=== PATIENT | female | born 1960 | race Caucasian/White ===

== ENCOUNTER 2017-08-20 17:11 | Emergency (ER) | payer MEDICARE, OTHER ==
[~2017-08-20] VITALS: Ht 160 cm; Wt 90.0 kg
[~2017-08-20 17:11] MED LIST: ALIS1TAB6 PO; GLIM4TAB55 PO; GLIP5TAB13 PO; INSU100I15 SC; INSU100V27 SQ; METO-335 PO; RAMI5CAP46 PO; SYMLIN SQ
[2017-08-20 17:16] VITALS: Ht 160 cm; Wt 90.0 kg
[2017-08-20] MEDS ORDERED: HYDROmorphONE 1 MG/ML SYG IM STA (18:05)
[2017-08-20] MEDS ORDERED: ONDANSETRON (ODT) 4 MG TAB ODT STA (18:05)
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
[2017-08-20] MEDS ORDERED: IBUP-1542 PO (19:23)
[2017-08-20] MEDS ORDERED: HYDR-902 PO (19:23)
[2017-08-20 20:47] VITALS: BP 135/63; PULSE 96; RESP 22; TEMP 98.8
== END 2017-08-20 20:50 | disposition home or self-care (01) ==
LOC: FTE 17:11
DX: S22.31XA Fracture of one rib, right side, initial encounter for closed fracture (principal); I10 Essential (primary) hypertension; E11.9 Type 2 diabetes mellitus without complications; V49.50XA Passenger injured in collision with unspecified motor vehicles in traffic accident, initial encounter; Z79.4 Long term (current) use of insulin; Z79.84 Long term (current) use of oral hypoglycemic drugs
CPT/HCPCS: 71010; 71100; 96372; 99284; J1170